=== PATIENT | male | born 1980 | race Caucasian/White ===

== ENCOUNTER 2018-01-31 00:39 | Inpatient (IN) | payer SELFPAY ==
[2018-01-31] MEDS ORDERED: Ondansetron HCl/PF 4 MG/2 ML Vial ONE ×2 (00:53→12:50)
[2018-01-31 01:08] LABS: #Eosinphils 0.2 thou/uL (0.0-0.7); #Lymphocytes 2.6 thou/uL (1.20-3.40); #Monocytes 0.9 thou/uL (0.11-0.59); #Neutrophils 13.8 thou/uL (1.40-6.50); %Basophils 0.2 % (0.0-1.0); %Eosinophils 1.1 % (0.0-10.0); %Lymphocytes 14.6 % (21.0-51.0); %Monocytes 4.9 % (0.0-10.0); %Neutrophils 79.1 % (42.0-75.0); Hemoglobin 16.1 g/dL (14.0-18.0); Mean Corpuscular HGB CONC 35.7 g/dL (32.0-36.0); Mean Corpuscular Hemoglobin 30.9 pg (27.0-31.0); Mean Corpuscular Volume 86.6 fL (78.0-98.0); Platelet Count 201 thou/uL (130-400); RBC Distribution Width 12.3 % (11.5-14.5); White Blood Cell (WBC) Count 17.5 thou/uL (4.8-10.8)
[2018-01-31 01:17] LABS: ALT (SGPT) 24 U/L (8-55); AST (SGOT) 17 U/L (5-34); Albumin 4.1 g/dL (3.5-5.0); Alcohol 52 mg/dL (Less than 10); Alkaline Phosphatase 75 U/L (40-150); Anion Gap 17 mmol/L (10-20); BUN (Urea Nitrogen) 11 mg/dL (8.9-20.6); Bilirubin, Total 0.6 mg/dL (0.2-1.2); Calc. Creatinine Clearance 0 mL/min (70-130); Calcium 8.6 mg/dL (7.8-10.44); Carbon Dioxide 19 mmol/L (22-29); Chloride 105 mmol/L (98-107); Estimated GFR-MDRD 86; Globulin 2.9 g/dL (2.4-3.5); Glucose 294 mg/dL (70-105); Potassium 3.7 mmol/L (3.5-5.1); Sodium 137 mmol/L (136-145)
[2018-01-31] MEDS ORDERED: Adacel (T-DAP) 0.5 ML VIAL ONE (01:32)
[2018-01-31] MEDS ORDERED: cefTRIAXone\\ROCEPHIN 2 GM VIAL ONE (01:50)
[2018-01-31] MEDS ORDERED: Midazolam HCl 2 mg/2 ml Vial ONE (02:10)
[2018-01-31 02:27] LABS: Bilirubin Negative (Negative); Blood, Urine Negative (Negative); Clarity CLEAR (Clear); Glucose, Urine (Dipstick) >=1000 mg/dL (Negative); Leukocyte Negative (Negative); Nitrite Negative (Negative); Protein, Urine (Dipstick) Negative (Neg-Trace); Urobilinogen 0.2 mg/dL (0.2-1.0)
[2018-01-31] MEDS ORDERED: Fentanyl 100 MCG/2 ML VIAL ONE ×2 (03:00→05:57)
[2018-01-31 03:08] LABS: Cocaine Metabolite Screen Not Detected (NotDetected); Medtox Reader # READER 4; Methamphetamine Not Detected (NotDetected); Phencyclidine (PCP) Not Detected (NotDetected); THC/Cannabinoid Screen Not Detected (NotDetected)
[2018-01-31 03:09] LABS: Amphetamine Not Detected (NotDetected); Barbiturates Screen Not Detected (NotDetected); Benzodiazepine Screen Not Detected (NotDetected); Medtox Control Line Valid? VALID (VALID); Methadone Not Detected (NotDetected); Opiate Screen Detected (NotDetected); Oxycodone Screen Not Detected (NotDetected); Tricyclic Screen Not Detected (NotDetected)
[2018-01-31] MEDS ORDERED: HYDROmorphone 0.5 MG/0.5 ML SYRINGE ONE (03:55)
[2018-01-31] MEDS ORDERED: Promethazine HCl 25 MG/ML VIAL SLOW IVP PRN (04:11)
[2018-01-31] MEDS ORDERED: Promethazine HCl 25 MG/ML VIAL IM PRN ×3 (04:11→06:37)
[2018-01-31] MEDS ORDERED: Ondansetron HCl/PF 4 MG/2 ML Vial IVP PRN ×2 (04:11→06:37)
[2018-01-31] MEDS ORDERED: Dextrose 50% Abboject 50 ML SYRINGE SLOW IVP PRN (06:37)
[2018-01-31] MEDS ORDERED: Morphine 4 MG/ML Carpuject IVP PRN (06:37)
[2018-01-31] MEDS ORDERED: Ondansetron ODT 4 MG TAB PO PRN (06:37)
[2018-01-31] MEDS ORDERED: Dextrose 5% in Water 1,000 ML IV PRN (06:37)
[2018-01-31] MEDS ORDERED: HYDROcodone/Acetaminophen 10/325 mg Tablet PO PRN ×3 (06:37→15:48)
[2018-01-31 06:43] VITALS: BMI 35.4
[2018-01-31] MEDS: Famotidine 20 MG TAB PO SCH ×2 (08:38→21:50)
[2018-01-31] MEDS: Sodium Chloride 0.9% 1,000 ML IV SCH ×2 (08:43→17:25)
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
--- NOTE | 2018-01-31 10:04 | RAD ---
2 VIEWS RIGHT HAND: Date: 01/31/18 HISTORY: Right hand injury. FINDINGS: There is incomplete visualization of a comminuted fracture involving the distal right radial metaphys is. There is intraarticular extension of the fracture involving the radius and displacement and angul ation of fracture fragments and volar angulation of fracture fragments. There is also a slightly comm inuted fracture involving the distal right fibula and the distal fracture fragment is also displaced dorsally based on this exam. There is subcutaneous emphysema about the wrist, which may be related to laceration or possibly component of an open fracture. There is a fracture fragment seen overlying th e subcutaneous soft tissues laterally and volarly, a portion of which extends outside of the skin, ag ain most compatible with open fracture. There is deformity at the wrist and subcutaneous soft tissue swelling. Subcutaneous emphysema and edema are present. IMPRESSION: Comminuted and displaced, as well as angulated fractures involving the distal right radius and ulna. There is intraarticular extension of fracture involving the radius. In addition, there is evidence of an open fracture with fracture fragment extending lateral to the skin margin at the wrist. POS: [facility]
--- NOTE | 2018-01-31 10:05 | RAD ---
TWO VIEWS RIGHT FOREARM: Date: 01-31-18 Provided Clinical History: Injury. FINDINGS: There are prominently comminuted, displaced fractures of the distal radial and ulnar metadiaphyseal r egions. There is dorsal displacement of the distal fragments with respect to the proximal fragments. There is prominent soft tissue irregularity and prominent multifocal irregular radiopacity within the soft tissues of the forearm compatible with foreign bodies. IMPRESSION: 1. Comminuted and displaced distal radial and ulnar fractures. 2. Multiple soft tissue foreign bodies. POS: [facility]
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
--- NOTE | 2018-01-31 10:15 | RAD ---
TWO VIEW RIGHT FOREARM SERIES TWO VIEW RIGHT WRIST SERIES: Indication: Fracture fixation, intraoperative imaging. FINDINGS: Intraoperative fluoroscopic imaging performed with views of the right forearm and right wrist submitt ed. There is a comminuted angulated fracture of the distal radius with involvement of the medial aspe ct of the articular surface. There is a transversely oriented distal diaphyseal fracture of the ulna as well as an ulnar styloid avulsion injury. Views of the proximal forearm at the level of the elbow reveal grossly normal alignment within limitation. There are external radiopaque devices overlying th e lateral aspect of the hand and distal forearm. IMPRESSION: Intraoperative imaging for fracture fixation, as above. POS: [facility]
[2018-01-31] MEDS ORDERED: Metoclopramide HCl 10 MG/2 ML VIAL ONE (12:50)
[2018-01-31] MEDS ORDERED: Ketorolac Tromethamine 30 MG/ML VIAL ONE (12:50)
[2018-01-31] MEDS ORDERED: Succinylcholine Chloride 20 MG/ML 10 ml SYRINGE FS ONE (12:50)
[2018-01-31] MEDS ORDERED: Lidocaine 1% PF 5 ML VIAL ONE (12:50)
[2018-01-31] MEDS ORDERED: Dexamethasone 20 MG/5 ML VIAL ONE (12:50)
[2018-01-31] MEDS ORDERED: PROPOFOL 200 MG/20 ML VIAL ONE (12:50)
[2018-01-31] MEDS ORDERED: Glycopyrrolate 0.2 MG/ML 5 ML SYRINGE ONE (12:50)
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
[2018-01-31] MEDS: HYDROcodone/Acetaminophen 10/325 mg Tablet PO PRN ×2 (17:43→21:50)
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
[2018-02-01] MEDS: Sodium Chloride 0.9% 1,000 ML IV SCH ×3 (01:53→20:12)
[2018-02-01] MEDS: Morphine 4 MG/ML VIAL SLOW IVP PRN ×4 (02:07→09:58)
[2018-02-01] MEDS: cefTRIAXone\\ROCEPHIN 2 GM in Sodium Chloride 0.9% 100 ML IVPB SCH (02:08)
[2018-02-01 04:23] LABS: #Basophils 0.1 thou/uL (0.0-0.2); #Eosinphils 0.1 thou/uL (0.0-0.7); #Lymphocytes 2.7 thou/uL (1.20-3.40); #Monocytes 1.1 thou/uL (0.11-0.59); #Neutrophils 10.7 thou/uL (1.40-6.50); %Basophils 0.4 % (0.0-1.0); %Eosinophils 0.5 % (0.0-10.0); %Lymphocytes 18.4 % (21.0-51.0); %Monocytes 7.6 % (0.0-10.0); %Neutrophils 73.2 % (42.0-75.0); Hemoglobin 13.8 g/dL (14.0-18.0); Mean Corpuscular HGB CONC 34.4 g/dL (32.0-36.0); Mean Corpuscular Hemoglobin 30.1 pg (27.0-31.0); Mean Corpuscular Volume 87.4 fL (78.0-98.0); Mean Platelet Volume 9.1 fL (7.4-10.4); Platelet Count 175 thou/uL (130-400); RBC Distribution Width 12.1 % (11.5-14.5); Red Blood Cell (RBC) Count 4.58 mill/uL (4.70-6.10); White Blood Cell (WBC) Count 14.6 thou/uL (4.8-10.8)
[2018-02-01 04:34] LABS: Anion Gap 12 mmol/L (10-20); BUN (Urea Nitrogen) 12 mg/dL (8.9-20.6); Calc. Creatinine Clearance 200 mL/min (70-130); Calcium 8.4 mg/dL (7.8-10.44); Carbon Dioxide 28 mmol/L (22-29); Chloride 100 mmol/L (98-107); Estimated GFR-MDRD Greater than 90; Glucose 216 mg/dL (70-105); Potassium 3.4 mmol/L (3.5-5.1); Sodium 137 mmol/L (136-145)
[2018-02-01] MEDS: Famotidine 20 MG TAB PO SCH ×2 (09:45→20:11)
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
[2018-02-01] MEDS ORDERED: Ondansetron HCl/PF 4 MG/2 ML Vial ONE (13:21)
[2018-02-01] MEDS ORDERED: Scopolamine 1.5 mg/72 hour Patch ONE (13:21)
[2018-02-01] MEDS ORDERED: Famotidine/PF 20 mg/2ml Vial ONE (13:21)
[2018-02-01] MEDS ORDERED: Bupivacaine HCl 0.5%/Epinephrine 1:200,000/PF 30 ml Vial ONE (13:45)
[2018-02-01] MEDS ORDERED: PROPOFOL 200 MG/20 ML VIAL ONE (13:59)
[2018-02-01] MEDS ORDERED: Glycopyrrolate 0.2 MG/ML 5 ML SYRINGE ONE (13:59)
[2018-02-01] MEDS ORDERED: Lidocaine 1% PF 5 ML VIAL ONE (13:59)
[2018-02-01] MEDS ORDERED: Fentanyl 100 MCG/2 ML VIAL ONE ×2 (15:18→15:51)
[2018-02-01] MEDS ORDERED: Midazolam HCl 2 mg/2 ml Vial ONE (15:34)
[2018-02-01] MEDS ORDERED: Meperidine HCl/PF 25 MG/ML VIAL SLOW IVP PRN (16:19)
[2018-02-01] MEDS ORDERED: Promethazine HCl 25 MG/ML VIAL SLOW IVP PRN (16:19)
[2018-02-01] MEDS ORDERED: HYDROmorphone 2 MG/ML VIAL SLOW IVP PRN (16:19)
[2018-02-01] MEDS: CEFAZOLIN/Water 2 GM/20 ML SYRINGE SLOW IVP SCH (23:15)
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
[2018-02-02] MEDS: Sodium Chloride 0.9% 1,000 ML IV SCH (02:00)
[2018-02-02] MEDS: cefTRIAXone\\ROCEPHIN 2 GM in Sodium Chloride 0.9% 100 ML IVPB SCH (02:45)
[2018-02-02] MEDS: CEFAZOLIN/Water 2 GM/20 ML SYRINGE SLOW IVP SCH ×3 (05:38→21:21)
[2018-02-02] MEDS: HYDROcodone/Acetaminophen 10/325 mg Tablet PO PRN ×3 (09:44→19:51)
[2018-02-02] MEDS: Famotidine 20 MG TAB PO SCH ×2 (09:44→19:53)
--- NOTE | 2018-02-02 20:02 | PRG ---
DATE OF SERVICE: 02/02/2018 SUBJECTIVE: The patient is hospital day 3, postop day 1 from a crush injury and a degloving injury o f his right elbow. The patient on the day of admission underwent irrigation and debridement, and tiffanie cement of an external fixator on his right upper extremity. The patient had what appeared to be a gr veronica 3B open fracture of his distal radius and ulna. The patient tolerated this procedure well and ye sterday he underwent the repeat washout and subsequent debridement. The patient will likely require grafting to cover his wounds. Otherwise, the patient is doing well. He has a wound VAC placed that is scheduled to undergo change today. The patient is tolerating his diet. PHYSICAL EXAMINATION: VITAL SIGNS: Temperature is 98.3, heart rate 80, blood pressure 126/78, respirations 14, oxygen satu ration 97% on room air. GENERAL: The patient is resting comfortably in bed. He is awake, alert, and oriented x3. [place] c patria scale is 15. HEENT: Unremarkable. LUNGS: Clear to auscultation with good inspiratory and expiratory effort. HEART: Regular rate and rhythm. ABDOMEN: Soft, flat, nontender with active bowel sounds. EXTREMITIES: Neurovascularly intact x4. His right upper extremity is neurovascularly intact and his dressing, splints, and orthopedic devices are clean, dry, and intact. ASSESSMENT AND PLAN: 1. Status post open distal radius and ulnar fractures. 2. Status post external fixator placement with repeat irrigation and debridement. PLAN: Plan will be to continue supportive care, wound care, pain management, physical and occupation al therapy, and await final disposition by the Orthopedic team. The evaluation and examination were done with Dr. Garibay during rounds this morning.
[2018-02-03] MEDS: HYDROcodone/Acetaminophen 10/325 mg Tablet PO PRN ×4 (01:26→21:00)
[2018-02-03] MEDS: cefTRIAXone\\ROCEPHIN 2 GM in Sodium Chloride 0.9% 100 ML IVPB SCH (02:46)
[2018-02-03] MEDS: CEFAZOLIN/Water 2 GM/20 ML SYRINGE SLOW IVP SCH ×3 (06:08→21:01)
[2018-02-03] MEDS ORDERED: Amlodipine 5 MG TAB PO SCH (09:00)
[2018-02-03] MEDS: Famotidine 20 MG TAB PO SCH ×2 (09:14→21:01)
--- NOTE | 2018-02-04 00:09 | PRG ---
DATE OF SERVICE: 02/03/2018 ATTENDING PHYSICIAN: Dr. Chao Garibay. SUBJECTIVE: Mr. Malin is a 38-year-old male who is postoperative day #2 from a crush and degloving of his right elbow. He underwent irrigation and debridement, and placement of an external fixator o n his right upper extremity. Today, the pain is well controlled. He had nerve blocks 02/02/2018. H reid has had persistent hypertension requiring initiation of antihypertensives. OBJECTIVE: VITAL SIGNS: Temperature 97.7, pulse 78, respirations 17, O2 sat 98, blood pressure 162/92. GENERAL: Well-developed, well-nourished male lying in bed in no acute distress. HEENT: Atraumatic, normocephalic. LUNGS: Clear to auscultation. No respiratory distress. CARDIOVASCULAR: Regular rate and rhythm. ABDOMEN: Soft, nontender, nondistended. EXTREMITIES: Right upper extremity with external fixator, currently in arm sling. Neurovascularly i ntact x4. Cap refill brisk. LABORATORY DATA: None. ASSESSMENT: 1. Status post crush and degloving of right upper extremity. 2. Open distal radius and ulnar fractures, status post external fixator placement with irrigation an d debridement. 3. Acute traumatic pain, well controlled. 4. Hypertension. PLAN: 1. Begin Norvasc daily 5 mg. 2. Continue antibiotics per Orthopedic Service. 3. Continue oral analgesia. 4. Pepcid for gastritis prophylaxis. 5. SCDs for DVT prophylaxis. Chemical DVT prophylaxis when okay with Orthopedic Service. 6. Patient to return to OR with Dr. Chavez ,probably tomorrow. The patient was seen and examined with Dr. Garibay who agrees with plan.
[2018-02-04] MEDS ORDERED: hydrALAZINE 20 MG/ML VIAL SLOW IVP PRN (01:23)
[2018-02-04] MEDS ORDERED: hydrALAZINE 20 MG/ML VIAL SLOW IVP SCH (01:30)
[2018-02-04] MEDS: cefTRIAXone\\ROCEPHIN 2 GM in Sodium Chloride 0.9% 100 ML IVPB SCH (01:36)
[2018-02-04] MEDS: HYDROcodone/Acetaminophen 10/325 mg Tablet PO PRN ×3 (01:44→23:12)
[2018-02-04] MEDS: CEFAZOLIN/Water 2 GM/20 ML SYRINGE SLOW IVP SCH ×3 (06:09→21:26)
[2018-02-04] MEDS ORDERED: Amlodipine 10 MG TAB PO SCH (09:00)
[2018-02-04] MEDS ORDERED: Bacitracin Zinc Ointment 30 gm TUBE ONE (11:30)
[2018-02-04] MEDS ORDERED: Thrombin 5000 UNITS/5 ML VIAL ONE ×2 (11:30→12:56)
[2018-02-04] MEDS ORDERED: Sodium Chloride 0.9% 10 ML ONE (11:42)
[2018-02-04] MEDS: Famotidine 20 MG TAB PO SCH ×2 (11:49→21:25)
[2018-02-04] MEDS ORDERED: Midazolam HCl 2 mg/2 ml Vial ONE (11:54)
[2018-02-04] MEDS ORDERED: Fentanyl 100 MCG/2 ML VIAL ONE ×2 (12:08→14:12)
[2018-02-04] MEDS ORDERED: Ondansetron HCl/PF 4 MG/2 ML Vial IVP PRN (13:43)
[2018-02-04] MEDS ORDERED: Promethazine HCl 25 MG/ML VIAL IM PRN (13:43)
[2018-02-04] MEDS ORDERED: Promethazine HCl 25 MG/ML VIAL SLOW IVP PRN (13:43)
[2018-02-04] MEDS ORDERED: CEFAZOLIN/Water 2 GM/20 ML SYRINGE ONE (13:51)
[2018-02-04] MEDS ORDERED: hydrOXYzine 25 MG/ML VIAL IM PRN (14:59)
[2018-02-04] MEDS: Clindamycin/D5W 600 MG in Premix Bag 1 BAG IVPB SCH ×2 (17:55→23:11)
[2018-02-04] MEDS ORDERED: Polyethylene Glycol 3350 17 GM Packet PO SCH (21:00)
[2018-02-04] MEDS: Amlodipine 10 MG TAB PO SCH (21:25)
[2018-02-04] MEDS: Senokot S 8.6-50 MG TAB PO SCH (21:26)
--- NOTE | 2018-02-04 22:59 | PRG ---
DATE OF SERVICE: 02/04/2018 ATTENDING PHYSICIAN: Dr. Chao Garibay. SUBJECTIVE: Mr. Malin is a 38-year-old male who is postoperative day #3 from a crush and degloving of his right elbow. He returned to the OR today for a right arm skin graft. He is now seen on the floor postoperatively. The pain is partially controlled. He has required a dose of IV morphine. OBJECTIVE: VITAL SIGNS: Temperature 98.9, pulse 100, respirations 18, O2 sat 95% on room air, blood pressure 15 6/82. GENERAL: Well-developed, well-nourished male lying in bed in no acute distress. HEENT: Atraumatic, normocephalic. LUNGS: No respiratory distress. RESPIRATORY: Even unlabored. HEART: Regular rate and rhythm. ABDOMEN: Soft, nontender, nondistended. EXTREMITIES: Right upper extremity with external fixator. Cap refill brisk. Neurovascularly intact . ASSESSMENT: 1. Status post crush and degloving injury of right upper extremity. 2. Open distal radius and ulnar fracture, status post external fixator placement with irrigation and debridement. 3. Status post skin graft, postoperative day #0. 4. Acute traumatic pain, partially controlled. 5. Hypertension. PLAN: 1. Increase Norvasc 10 mg. 2. Continue antibiotics for Orthopedic Service. 3. Continue oral analgesia with morphine for breakthrough. 4. Pepcid for gastritis prophylaxis. 5. SCDs for DVT prophylaxis. 6. Discussed with Dr. Chavez. Anticipate patient will discharge tomorrow. Patient was reviewed w patrick Garibay who agrees with plan.
[2018-02-05] MEDS: cefTRIAXone\\ROCEPHIN 2 GM in Sodium Chloride 0.9% 100 ML IVPB SCH (01:27)
[2018-02-05 05:15] LABS: #Eosinphils 0.2 thou/uL (0.0-0.7); #Monocytes 0.9 thou/uL (0.11-0.59); #Neutrophils 6.1 thou/uL (1.40-6.50); %Basophils 0.5 % (0.0-1.0); %Lymphocytes 21.6 % (21.0-51.0); %Monocytes 9.3 % (0.0-10.0); %Neutrophils 66.7 % (42.0-75.0); Hemoglobin 12.9 g/dL (14.0-18.0); Mean Corpuscular HGB CONC 35.1 g/dL (32.0-36.0); Mean Corpuscular Hemoglobin 31.1 pg (27.0-31.0); Mean Corpuscular Volume 88.5 fL (78.0-98.0); Mean Platelet Volume 8.4 fL (7.4-10.4); Platelet Count 226 thou/uL (130-400); Red Blood Cell (RBC) Count 4.15 mill/uL (4.70-6.10); White Blood Cell (WBC) Count 9.2 thou/uL (4.8-10.8)
[2018-02-05] MEDS ORDERED: hydrALAZINE 20 MG/ML VIAL SLOW IVP PRN (05:22)
[2018-02-05 05:27] LABS: Anion Gap 12 mmol/L (10-20); BUN (Urea Nitrogen) 8 mg/dL (8.9-20.6); Calc. Creatinine Clearance 206 mL/min (70-130); Carbon Dioxide 31 mmol/L (22-29); Chloride 94 mmol/L (98-107); Estimated GFR-MDRD Greater than 90; Glucose 271 mg/dL (70-105); Magnesium 1.9 mg/dL (1.6-2.6); Phosphorus 3.5 mg/dL (2.3-4.7); Potassium 3.7 mmol/L (3.5-5.1); Sodium 133 mmol/L (136-145)
[2018-02-05] MEDS: HYDROcodone/Acetaminophen 10/325 mg Tablet PO PRN ×4 (06:08→22:57)
[2018-02-05] MEDS: CEFAZOLIN/Water 2 GM/20 ML SYRINGE SLOW IVP SCH ×3 (06:08→21:17)
[2018-02-05] MEDS: Polyethylene Glycol 3350 17 GM Packet PO SCH (08:48)
[2018-02-05] MEDS: Senokot S 8.6-50 MG TAB PO SCH ×2 (08:48→21:11)
[2018-02-05] MEDS: Famotidine 20 MG TAB PO SCH ×2 (08:48→21:11)
[2018-02-05] MEDS: Clindamycin/D5W 600 MG in Premix Bag 1 BAG IVPB SCH ×3 (08:48→23:04)
[2018-02-05] MEDS ORDERED: Dextrose 5% in Water 1,000 ML IV PRN (18:25)
[2018-02-05] MEDS ORDERED: Dextrose 50% Abboject 50 ML SYRINGE SLOW IVP PRN (18:25)
[2018-02-05] MEDS: Amlodipine 10 MG TAB PO SCH (21:11)
[2018-02-05] MEDS: Insulin Regular 300 UNITS/3 ML VIAL SC PRN (21:13)
--- NOTE | 2018-02-05 21:18 | PRG ---
DATE OF SERVICE: 02/05/2018 ATTENDING PHYSICIAN: Dr. Chao Garibay. SUBJECTIVE: Mr. Malin is a 38-year-old male, who is postoperative day#4 from a crush and degloving injury of his right elbow. He is postoperative day #1 status post right arm skin graft. He is now seen on the surgical floor. He is ambulatory around the floor without assistance. His pain is well controlled. OBJECTIVE: VITAL SIGNS: Temperature 98.9, pulse 97, respirations 18, O2 saturation 98% on room air, blood press ure 159/97. GENERAL: Well-developed, well-nourished male, ambulatory, in no acute distress. HEENT: Atraumatic, normocephalic. PULMONARY: Bilateral breath sounds clear. No respiratory distress. CARDIOVASCULAR: Regular rate and rhythm. Heart sounds normal. ABDOMEN: Soft, nontender, nondistended. EXTREMITIES: Right upper extremity with external fixator. Cap refill brisk. Neurovascularly intact . LABORATORY DATA: WBC 9.2, RBC 4.15, hemoglobin 12.9, hematocrit 36.7, platelets 226. Chemistry: So dium 133, potassium 3.7, chloride 94, carbon dioxide 31, BUN 8, creatinine 0.75, glucose 271, calcium 9.0, phosphorus 3.5, magnesium 1.9. ASSESSMENT: 1. Status post crush and degloving injury to right upper extremity. 2. Open distal radius and ulnar fractures, status post external fixator placement with irrigation an d debridement. 3. Status post skin graft, postoperative day #1. 4. Acute traumatic pain, well controlled. 5. Hypertension, started on Norvasc. 6. Glucose has been consistently elevated. The patient does not have a history of diabetes. PLAN: 1. Continue Norvasc is ordered. 2. Continue antibiotics per Orthopedic Service. 3. Continue oral analgesia and transition from IV analgesia. 4. Start on sliding scale insulin. 5. SCDs for DVT prophylaxis. 6. Pepcid for gastritis prophylaxis. 7. Discussed with Dr. Chavez and Dr. Willis. Anticipate patient will discharge home in a.m. The patient was reviewed with Dr. Garibay who agrees with plan.
[2018-02-06] MEDS: cefTRIAXone\\ROCEPHIN 2 GM in Sodium Chloride 0.9% 100 ML IVPB SCH (02:51)
[2018-02-06] MEDS: HYDROcodone/Acetaminophen 10/325 mg Tablet PO PRN ×3 (03:01→15:01)
[2018-02-06] MEDS: CEFAZOLIN/Water 2 GM/20 ML SYRINGE SLOW IVP SCH ×2 (05:31→13:58)
[2018-02-06] MEDS: Insulin Regular 300 UNITS/3 ML VIAL SC PRN ×2 (06:34→12:11)
[2018-02-06 08:35] VITALS: TEMP 97.8
[2018-02-06] MEDS: Clindamycin/D5W 600 MG in Premix Bag 1 BAG IVPB SCH (08:35)
[2018-02-06] MEDS: Senokot S 8.6-50 MG TAB PO SCH (08:36)
[2018-02-06] MEDS: Polyethylene Glycol 3350 17 GM Packet PO SCH (08:36)
[2018-02-06] MEDS: Famotidine 20 MG TAB PO SCH (08:36)
--- NOTE | 2018-02-06 10:47 | OP ---
DATE OF SURGERY: 02/04/2018 PREOPERATIVE DIAGNOSIS: Right 7 x 5 forearm and approximately 3 x 2 wrist full-thickness skin loss. Making it approximately 1 cm of the wrist wound was skin grafted. FINDINGS: No gross infection. Small hematoma seen in forearm wound. PROCEDURE PERFORMED: Right upper extremity, 1. At the right wrist, a debridement of wound, intermediate depth, 85451. 2. Closure of 1 cm wound, 33332. 3. A 3 x 2 cm split-thickness skin graft harvested from his lateral thigh, mesh 1 to 1.5, thickness 0.20 at the forearm wound, dorsal and proximal. A. Evacuation of hematoma approximately 2 x 2 cm. No gross infection. B. Irrigation and debridement of wound. 3. Application of split-thickness skin graft 7-inch x 5-inch, again 0.20 cm thickness, mesh 1-1.5. INDICATIONS: The patient had ____ what was a grade 3 wound, already debrided twice by Orthopedic Morales arias now, coverage definitively will be executed in a day if there is no gross infection. When they were none found it was executed. DESCRIPTION OF PROCEDURE: After successful general LMA technique, the limb was prepped and draped. The patient had timeout done appropriately. No tourniquet was used. We then inspected each wound, f ound the hematoma described above in the proximal forearm and removed this. We then debrided and irr igated this wound out to include the hematoma area. At the same time, deep debridement was done down to, but not including the joint and bone on the forearm-palmar wound. We then evacuated all hematom a. Both were irrigated with 3 liters normal saline on bulb syringe pressure with antibiotics inside. We then measured the area and found there was over 40 square inches, so we outlined a cut that would be 0.20 thick using the power Terrance dermatone. We then covered this with thrombin-soaked Gelfoam. He was taken to the back table and meshed 1-1.5 and then with stress enough to close all areas, but did not close. We closed 1.5-2 cm of the forearm proximal wound edge with 3-0 nylon. Once we had meshed and placed ____ stressed and held in place with crispin around the wound edges, st apled the center of the proximal wound. Then, the same was done at the distal wound. There was no d ead space. We then placed bacitracin and Adaptic over the wound, new skin graft site and both sides a bolster wa s applied with mineral oil to include 1 cotton ball on the wrist wound and an ABD soaked in mineral o il on the forearm wound. A separate ABD was placed on top of this and we compared the dressings as f inal. The patient then had a bulky dressing applied, sugar tong splint, and left the operating room without evidence of anesthetic or operative complication.
[2018-02-06 12:30] VITALS: BP 166/94
== END 2018-02-06 16:21 | disposition home or self-care (01) | DRG 465 ==
LOC: ERS 00:39 → EDBD 00:39 → SJJU 02:31 → SDC/OP 02:56 → SJJU 05:53
PROVIDERS: ADMIT Specialist; ATTEND Specialist
PROC: 0PSHXZZ Reposition Right Radius, External Approach (ICD-10-PCS; principal; 2018-01-31)
PROC: 0KB90ZZ Excision of Right Lower Arm and Wrist Muscle, Open Approach (ICD-10-PCS; 2018-01-31)
PROC: 0PSH05Z Reposition Right Radius with External Fixation Device, Open Approach (ICD-10-PCS; 2018-01-31)
PROC: 0PSKXZZ Reposition Right Ulna, External Approach (ICD-10-PCS; 2018-01-31)
PROC: 0HRDXK4 Replacement of Right Lower Arm Skin with Nonautologous Tissue Substitute, Partial Thickness, External Approach (ICD-10-PCS; 2018-02-04)
PROC: 0RBN0ZZ Excision of Right Wrist Joint, Open Approach (ICD-10-PCS; 2018-02-04)
PROC: 0HBHXZZ Excision of Right Upper Leg Skin, External Approach (ICD-10-PCS; 2018-02-04)
PROC: 0JQG3ZZ Repair Right Lower Arm Subcutaneous Tissue and Fascia, Percutaneous Approach (ICD-10-PCS; 2018-02-04)
DX: S52.501C Unspecified fracture of the lower end of right radius, initial encounter for open fracture type IIIA, IIIB, or IIIC (principal); S52.601 Unspecified fracture of lower end of right ulna; V89.2XXA Person injured in unspecified motor-vehicle accident, traffic, initial encounter; S51.021A Laceration with foreign body of right elbow, initial encounter; S61.521A Laceration with foreign body of right wrist, initial encounter; S61.212A Laceration without foreign body of right middle finger without damage to nail, initial encounter; S51.821A Laceration with foreign body of right forearm, initial encounter
CPT/HCPCS: 36415; 36416; 70450; 72125; 76000; 80048; 80053; 80306; 80307; 81003; 83735; 84100; 85025; 86850; 86900; 86901; 90471; 90715; 96361; 96374; 96375; A4216; C1713; G0390; G8978-GP-CJ; G8978-GP-CM; G8979-GP-CJ; G8980-GP-CJ; G8987-GO-CJ; G8988-GO-CJ; G8989-GO-CJ; J0131; J0360; J0670; J0696; J1100; J1170; J1815; J1885; J2001; J2250; J2270; J2405; J2704; J2765; J3010; J3490; J7050; S0028

== ENCOUNTER 2018-04-18 11:20 | Inpatient (IN) | payer OTHER, SELFPAY ==
[2018-04-17 16:33] VITALS: BMI 35.4
[2018-04-18] MEDS ORDERED: Ropivacaine 0.2% HCl/PF (40 MG/20 ML VIAL) ONE (11:25)
[2018-04-18] MEDS ORDERED: Ropivacaine 0.5% HCl/PF (150 MG/30 ML VIAL) ONE (11:25)
[2018-04-18] MEDS ORDERED: Ketorolac Tromethamine 30 MG/ML VIAL ONE (11:42)
[2018-04-18] MEDS ORDERED: PROPOFOL 200 MG/20 ML VIAL ONE (11:42)
[2018-04-18] MEDS ORDERED: Lidocaine 1% PF 5 ML VIAL ONE (11:42)
[2018-04-18] MEDS ORDERED: Dexamethasone 20 MG/5 ML VIAL ONE (11:42)
[2018-04-18] MEDS ORDERED: Ondansetron HCl/PF 4 MG/2 ML Vial ONE (11:42)
[2018-04-18] MEDS ORDERED: Clindamycin/D5W 600 mg/50 ml Premix Bag ONE (13:48)
[2018-04-18] MEDS ORDERED: Midazolam HCl 2 mg/2 ml Vial ONE ×2 (13:49→16:06)
[2018-04-18] MEDS ORDERED: Fentanyl 100 MCG/2 ML VIAL ONE ×2 (13:49→16:06)
[2018-04-18 13:51] LABS: #Eosinphils 0.4 thou/uL (0.0-0.7); #Lymphocytes 2.4 thou/uL (1.20-3.40); #Monocytes 0.4 thou/uL (0.11-0.59); #Neutrophils 5.3 thou/uL (1.40-6.50); %Basophils 0.6 % (0.0-1.0); %Eosinophils 4.2 % (0.0-10.0); %Lymphocytes 28.1 % (21.0-51.0); %Monocytes 4.7 % (0.0-10.0); %Neutrophils 62.4 % (42.0-75.0); Mean Corpuscular HGB CONC 34.2 g/dL (32.0-36.0); Mean Corpuscular Hemoglobin 28.3 pg (27.0-31.0); Mean Corpuscular Volume 82.7 fL (78.0-98.0); Mean Platelet Volume 10.5 fL (7.4-10.4); Platelet Count 167 thou/uL (130-400); RBC Distribution Width 13.9 % (11.5-14.5); Red Blood Cell (RBC) Count 5.99 mill/uL (4.70-6.10); White Blood Cell (WBC) Count 8.4 thou/uL (4.8-10.8)
[2018-04-18] MEDS ORDERED: Promethazine HCl 25 MG/ML VIAL IM PRN ×2 (15:21→20:03)
[2018-04-18] MEDS ORDERED: Ketorolac Tromethamine 30 MG/ML VIAL IVP PRN ×2 (15:21→21:09)
[2018-04-18] MEDS ORDERED: Ondansetron HCl/PF 4 MG/2 ML Vial IVP PRN ×2 (15:21→20:03)
[2018-04-18] MEDS ORDERED: Ropivacaine 0.2% 550 ML 550 ML NERVE BLCK SCH (15:21)
[2018-04-18] MEDS ORDERED: traMADol HCl 50 MG TAB PO PRN ×2 (15:21)
[2018-04-18] MEDS ORDERED: HYDROcodone/Acetaminophen 10/325 mg Tablet PO PRN ×2 (15:21)
[2018-04-18] MEDS ORDERED: Fentanyl 100 MCG/2 ML VIAL IV PRN (15:21)
[2018-04-18] MEDS ORDERED: Zolpidem Tartrate 5 MG TAB PO PRN (15:21)
[2018-04-18] MEDS ORDERED: Bacitracin Zinc Ointment 30 gm TUBE ONE (15:58)
[2018-04-18] MEDS ORDERED: Bupivacaine PF 0.5% 30 ML VIAL ONE (15:58)
[2018-04-18] MEDS ORDERED: Promethazine HCl 25 MG/ML VIAL SLOW IVP PRN (20:03)
[2018-04-18] MEDS ORDERED: HYDROmorphone 2 MG/ML VIAL SLOW IVP PRN (20:03)
[2018-04-18] MEDS ORDERED: Acetaminophen 325 MG TAB PO PRN (20:59)
[2018-04-18] MEDS ORDERED: Morphine 4 MG/ML Carpuject IVP PRN (20:59)
[2018-04-18] MEDS ORDERED: RENALLY ADJUST ANTIBIOTICS FS SCH (21:00)
[2018-04-18] MEDS ORDERED: Meperidine HCl/PF 25 MG/ML VIAL IM PRN (21:09)
--- NOTE | 2018-04-18 21:36 | RAD ---
RIGHT WRIST THREE VIEWS: 04/18/18 HISTORY: ORIF right wrist, distal radial and ulnar fractures. FINDINGS/IMPRESSION: Nine spot fluoroscopic intraoperative images of the right wrist demonstrate different stages in reduc tion and internal fixation of the distal radial and ulnar fractures with plates and screws. POS: KENYATTA
[2018-04-18] MEDS: Sodium Chloride 0.9% 100 ML IV SCH (23:08)
[2018-04-18] MEDS: Sodium Chloride 0.9% 1,000 ML IV SCH (23:12)
[2018-04-18] MEDS: Aspirin 81 mg Enteric Coated Tablet PO SCH (23:13)
[2018-04-18] MEDS: Ketorolac Tromethamine 30 MG/ML VIAL IVP SCH (23:14)
[2018-04-19] MEDS: HYDROcodone/Acetaminophen 5/325 mg Tablet PO PRN ×2 (01:53→14:05)
[2018-04-19] MEDS: Vancomycin HCl 1.5 GM in Sodium Chloride 0.9% 250 ML 300 ML IVPB SCH ×2 (02:00→14:04)
[2018-04-19] MEDS: Ketorolac Tromethamine 30 MG/ML VIAL IVP SCH ×3 (05:21→18:14)
[2018-04-19 05:56] LABS: #Basophils 0.1 thou/uL (0.0-0.2); #Lymphocytes 1.6 thou/uL (1.20-3.40); #Monocytes 0.8 thou/uL (0.11-0.59); %Basophils 0.6 % (0.0-1.0); %Eosinophils 0.3 % (0.0-10.0); %Lymphocytes 12.4 % (21.0-51.0); %Monocytes 6.1 % (0.0-10.0); %Neutrophils 80.6 % (42.0-75.0); Hemoglobin 15.1 g/dL (14.0-18.0); Mean Corpuscular HGB CONC 34.7 g/dL (32.0-36.0); Mean Corpuscular Hemoglobin 28.8 pg (27.0-31.0); Mean Corpuscular Volume 82.8 fL (78.0-98.0); Mean Platelet Volume 9.8 fL (7.4-10.4); Platelet Count 181 thou/uL (130-400); RBC Distribution Width 14.1 % (11.5-14.5); Red Blood Cell (RBC) Count 5.24 mill/uL (4.70-6.10); White Blood Cell (WBC) Count 12.4 thou/uL (4.8-10.8)
[2018-04-19 06:29] LABS: ALT (SGPT) 31 U/L (8-55); AST (SGOT) 19 U/L (5-34); Alkaline Phosphatase 78 U/L (40-150); Anion Gap 16 mmol/L (10-20); BUN (Urea Nitrogen) 16 mg/dL (8.9-20.6); Bilirubin, Total 0.8 mg/dL (0.2-1.2); Calc. Creatinine Clearance 162 mL/min (70-130); Calcium 9.2 mg/dL (7.8-10.44); Carbon Dioxide 23 mmol/L (22-29); Chloride 97 mmol/L (98-107); Estimated GFR-MDRD 89; Globulin 2.9 g/dL (2.4-3.5); Glucose 310 mg/dL (70-105); Protein, Total 6.9 g/dL (6.0-8.3); Sodium 132 mmol/L (136-145)
[2018-04-19] MEDS: Sodium Chloride 0.9% 1,000 ML IV SCH ×2 (08:31→23:36)
[2018-04-19] MEDS: Aspirin 81 mg Enteric Coated Tablet PO SCH ×2 (08:32→20:49)
[2018-04-19] MEDS ORDERED: TETANUS AND DIPHTHERIA TOX/PF 0.5 ML DISP.SYRIN IM SCH (09:00)
[2018-04-19] MEDS: Morphine 4 MG/ML VIAL SLOW IVP PRN ×2 (16:06→20:50)
[2018-04-20] MEDS: Ketorolac Tromethamine 30 MG/ML VIAL IVP SCH (00:27)
[2018-04-20] MEDS: Vancomycin HCl 1.5 GM in Sodium Chloride 0.9% 250 ML 300 ML IVPB SCH (03:25)
[2018-04-20] MEDS: HYDROcodone/Acetaminophen 5/325 mg Tablet PO PRN (03:31)
[2018-04-20 04:41] VITALS: TEMP 97.7
[2018-04-20] MEDS: Sodium Chloride 0.9% 1,000 ML IV SCH (06:22)
[2018-04-20] MEDS: Aspirin 81 mg Enteric Coated Tablet PO SCH (08:30)
[2018-04-20 09:22] VITALS: BP 152/100
--- NOTE | 2018-04-20 10:50 | OP ---
DATE OF PROCEDURE: 04/18/2018 PREOPERATIVE DIAGNOSES: 1. Radius fracture with early malunion. 2. Ulnar fracture with nonunion. 3. Displaced fracture. 4. Painful external fixator. POSTOPERATIVE DIAGNOSES: 1. Radius fracture approximately 50% healed, but marked angulation, shortened, and malrotated. 2. Ulnar fracture with 100% displacement with ends not touching, definitely a nonunion. 3. Displaced fracture. 4. Painful external fixator. PROCEDURES PERFORMED: 1. Ulnar fracture, open treatment of nonunion. 2. Open reduction and internal fixation of ulnar fracture. 3. Ulnar fracture bone grafting. 4. Open reduction and internal fixation of distal radius fracture. 5. Major bone graft in the radius. 6. Malunion treatment of radius shaft. 7. C-arm supervision. 8. Open reduction and internal fixation radius with bone graft. ESTIMATED BLOOD LOSS: 100 mL. TOURNIQUET TIME: 135 total, 74 up, then 20 down, then 64 up. DESCRIPTION OF PROCEDURE: After successful general endotracheal anesthesia, limb was prepped and lorraine ped. Before we began the open procedure, we changed gloves after removing the external fixator and c urettaged and irrigated the wounds. Then, we made a palmar incision on the radius after radiographs, which showed the complete loss of continuity of the ulna and only about 30% continuity of radius wit h the fixator off. We exsanguinated the limb, inflated the tourniquet to 250 mmHg, made a zigzag inc ision avoiding the palmar cutaneous branch, and dissected down to the flexor carpi radialis remnant. There was a gap with no flexor carpi radialis seen throughout the remainder of the field. At this p oint, we were able to separate the radius, which had invagination or shortening, with 7 degrees dorsa l tilt in the sagittal plane and was angulated too much from radial angle. We corrected all of these to the best of our ability making a match up with bone using the elevator as instructed. Once we had done this, we noted that there was marked need for bone graft to maintain height, otherwise i t was shortened by 3 mm. So, we made multiple cancellous chips of the appropriate depth, length, and height to fill up the cavity, and before we filled, we reduced the fracture and held with 2 K-wires from the radial styloid. The patient then had the reduced fracture undergo C-arm visualization. We placed a 5-hole plate subchondral to the radiocarpal joint down to level 3 holes were below the fract ure. The patient then had this tightened. Bone graft further augmented onto the plate, and then we felt the radius fracture was in excellent condition. We released the tourniquet. We irrigated gentl y, closed it in a 2-layer with remnant of placed over the plate and screws, subcutaneous closed with 3-0 Monocryl in a running fashion, and skin approximated with 4-0 nylon in interrupted fashion. We injected the site with 10 mL of 0.5% Marcaine, also did the portal for this repair was also insp ected. Now the closure with accomplished hemostasis obtained as listed above, we then turned our att ention to the ulnar side where we had to perform an open reduction and internal fixation, but first w e had a release of the tourniquet, re-exsanguinate it, and we had 92 minutes before the surgery to be completed. We then carried the incision through skin and subcutaneous tissue and got down to the di rect border of the ulna. Via Piute blade, we released the periosteum. Here, we saw the fracture wa s 100% and invaginated in this direction, and then we felt that it was a nonunion without a ny bony continuity. We then debrided the edges of the ulnar shaft, placed a best fit 7-hole plate, 2 .7 screws from the mini fragment set, and from here, we were able to reduce the fracture to the plate and there was no gap formation. We then placed 7 screws to hold the fracture with first 2 of the di stal ones obliquely oriented towards the fracture. Once we placed the ulnar plate, 2 screws that we changed because of length issues, i.e., too long, an d then we removed them. Rotation was passively 70 degrees in each direction. Palmar flexion was pas sively 50 and dorsiflexion was passively 60. We irrigated the wound. We then closed it over interru pted 4-0 nylon in simple pattern. The patient had no complications.
== END 2018-04-20 11:00 | disposition home or self-care (01) | DRG 512 ==
LOC: SDC 11:20 → SURG A 22:12
PROVIDERS: ADMIT Orthopaedic Surgery Hand Surgery; ATTEND Orthopaedic Surgery Hand Surgery
PROC: 0PSK04Z Reposition Right Ulna with Internal Fixation Device, Open Approach (ICD-10-PCS; principal; 2018-04-18)
PROC: 0PRH0JZ Replacement of Right Radius with Synthetic Substitute, Open Approach (ICD-10-PCS; 2018-04-18)
PROC: 0PSH04Z Reposition Right Radius with Internal Fixation Device, Open Approach (ICD-10-PCS; 2018-04-18)
PROC: 0PR Upper Bones, Replacement (ICD-10-PCS; 2018-04-18)
DX: S52.501B Unspecified fracture of the lower end of right radius, initial encounter for open fracture type I or II (principal); V89.2XXA Person injured in unspecified motor-vehicle accident, traffic, initial encounter; S52.601B Unspecified fracture of lower end of right ulna, initial encounter for open fracture type I or II; Z87.891 Personal history of nicotine dependence
CPT/HCPCS: 36415; 76001; 80053; 85025; 85652; 90471; 90686; 93005; 93010; A4306; C1713; G0008; J1100; J1885; J2001; J2250; J2270; J2405; J2704; J2795; J3010; J3370; J3490; J7050; S0020